=== PATIENT | male | born 1990 ===

== ENCOUNTER 2025-07-16 09:25 | Emergency (ER) | payer BC, SELFPAY ==
[2025-07-16 09:27] VITALS: BP 112/70; PULSE 86; RESP 16; TEMP 36.9; O2SAT 99; BMI 27.3
--- NOTE | 2025-07-16 09:34 | ED_ITS ---
HPI - Eye Problem General Chief complaint: Eye Problems Stated complaint: eye issues Time Seen by Provider: 07/16/25 09:31 Source: patient Mode of arrival: ambulatory Limitations: no limitations History of Present Illness ED Provider: Ambreen Salinas PA-C HPI Narrative: 35-year-old male presents to the ER for evaluation of right eye pain, redness, sensitivity for the last 2 weeks. He states 2 weeks ago he had a rip in his contact and had to continue wearing it because he had no others to replace it with. He has had sensitivity to light, redness, pain in the right eye. He has not worn his contacts for the last 2 weeks. No changes in his vision. In the morning he will wake up with some mild crusting on the right eye but no ongoing discharge throughout the day. He reports a friend had a steroid eyedrops which he was using for the last several days. He last had an eye exam 1.5 years ago and just got new eye insurance, trying to find a new eye doctor. MD chief complaint: eye pain and eye redness Onset description: sudden Duration: constant Location: right eye Eye Symptoms: burning, redness, pain, discharge and photophobia Place: home Mechanism: other (Broken contact lens) Severity: moderate If Pain, Quality: burning and aching Context: contact lens use Associated symptoms: none Treatments Prior to Arrival: OTC eye drops and NSAID Related Data Previous Rx's ?Medication ?Instructions ?Recorded erythromycin 5 mg/gram (0.5 %) eye 0.5 inch ophthalmic (eye) BID #3.5 07/16/25 ointment grams Allergies Allergy/AdvReac Type Severity Reaction Status Date / Time SEAFOOD Allergy Severe throat Uncoded 07/16/25 09:30 swelling Review of Systems Review of Systems: Yes all other systems are reviewed and are negative [facility] Social History Social History Advance Directives: No Advance Directives Information Provided: Yes Physical Exam Exam: Exam: Appearance: Alert. Oriented X3. No acute distress. HEENT: Face is symmetric. Normal inspection of the periorbital structures including the lids. Normal inspection of the left eye, no scleral or co njunctival injection. The right eye has diffuse scleral injection, there is an obvious corneal abrasion at 12:00. Pupils are equal round and reactive to light bilaterally. Extraocular movements are intact. No drainage from the eye. Anterior chamber appears normal. No visible foreign body CVS: Normal heart rate and rhythm. Pulses normal. Respiratory: No respiratory distress. Speaking in complete sentences Skin: Skin warm and dry. Normal skin color. No rashes. Extremities: normal inspection x4 Neuro: Awake, alert, nonfocal Vital Signs: Vital Signs: Last Vital Signs Temp 98.4 F 07/16/25 10:17 Pulse 86 07/16/25 10:17 Resp 16 07/16/25 10:17 BP 112/70 07/16/25 10:17 Pulse Ox 99 07/16/25 10:17 O2 Del Method Room Air 07/16/25 10:17 BMI result Body Mass Index 27.3 Medications Administered Discontinued Medications Generic Name Dose Route Start Last Admin Trade Name Freq PRN Reason Stop Dose Admin Fluorescein Sodium 1 strip 07/16/25 09:34 07/16/25 09:42 Fluorescein Sodium Strip EYE-RIGHT 07/16/25 09:35 1 strip ONCE ONE Administration Tetracaine HCl 1 drop 07/16/25 09:34 07/16/25 09:43 Tetracaine Hcl/Pf 0.5% Oph Helen 4 Ml Drops EYE-RIGHT 07/16/25 09:35 1 drop ONCE ONE Administration Medical Decision Making Medical Decision Making MDM Narrative: 35-year-old male presents to the ER for evaluation of right eye pain, redness, photosensitivity for the last 2 weeks after he was wearing a damaged contact. Exam is consistent with a corneal abrasion. He does not sleep in his contacts. No evidence of corneal ulcer on exam. Unfortunately he has been using topical steroids which can hinder corneal abrasion healing and predispose infection. We discussed the need to stop using this and will prescribe erythromycin ointment. Referral for Dr. Bonilla encouraged, he expressed understanding and all questions were answered. Stable for discharge home Differential Diagnosis Differential Diagnoses: The differential diagnosis associated with the presentation includes Corneal abrasion, corneal ulcer, conjunctivitis, foreign body, keratitis, iritis Independent Historian Clinical information obtained from an independent historian. History obtained from or confirmed by: Spouse Prescription Management I considered prescription management with: Pain Medication and Antibiotic Critical Care Time Critical Care Time Critical Care Time: No Discharge Plan Discharge Clinical Impression: Corneal abrasion Patient Disposition: Home, Self-Care Instructions: Corneal Abrasion (DC) Additional Instructions: you have a large scratch on your eye use the prescribed antibiotic ointment to help it heal STOP the steroid eye drops, this can delay corneal abrasion healing and increase risk of infection follow up with an eye doctor for re-evaluation to make sure it is healing - try Dr. Bonilla or [facility] Department [phone] no contacts until resolved use warm compresses to the right eye 2-3 times per day take motrin and tylenol as needed for pain If you develop new or worsening symptoms call 911 or come back to the ER for further evaluation. Prescriptions: New erythromycin 5 mg/gram (0.5 %) ointment 0.5 inch ophthalmic (eye) BID Qty: 3.5 0RF Referrals: Tien Bonilla [Physician, Ophthalmology] Referral Note: 2 weeks right eye pain, abrasion on exam Clinical Impression: Corneal abrasion Interventions: ED Discharge Assessment Last Done: 07/16/25 10:17 Discharge Date/Time: 07/16/25 10:18 Print Language: Kyrgyz
[2025-07-16] MEDS: Fluorescein Sodium STRIP 1 STRIP EYE-RIGHT (09:42)
[2025-07-16] MEDS: Tetracaine HCl/PF 0.5% Oph Sol 4 ML DROPS 1 DROP EYE-RIGHT (09:43)
[2025-07-16 10:17] VITALS: BP 112/70; PULSE 86; RESP 16; TEMP 36.9; O2SAT 99
--- OUTSIDE RECORDS SUMMARY | 2025-07-16 10:28 | XMS_ITS | Clinical Summary ---
Author Organization [facility] Address [address] [place] [address] Care Team Providers Care Manager Body Name Role Phone No, Pcp Primary Care Provider Unavailabl e Allergies No known active allergies Medications No known medications Family History Medical History Relation Comments Cirrhosis Father Diabetes Father Relation Status Comments Father Mother Alive Social History Tobacco Use Types Packs/Day Years Used Date Smoking Tobacco: Never Smokeless Tobacco: Never Alcohol Use Standard Drinks/Week Comments Yes 0 (1 standard drink = 0.6 oz pur e alcohol) PHQ-2 Answer Date Recorded Depression Risk (PHQ2) Score 0 Sex and Gender Information Value Date Recorded Sex Assigned at Not on file Legal Sex Male 11:36 AM [facility] Gender Identity Not on file Sexual Orientation Not on file Last Filed Vital Signs Vital Sign Reading Time Taken Comments Blood Pressure 118/65 06/02/2021 9:07 AM EDT Pulse 92 06/02/2021 9:07 AM EDT Temperature 36.8 C (98.2 F) 06/02/2021 9:07 AM EDT Respiratory Rate - - Oxygen Saturation 97% 06/02/2021 9:07 AM EDT Inhaled Oxygen Concentration - - Weight 70.3 kg (155 lb) 06/02/2021 9:07 AM EDT Height 165.2 cm (5' 5.04 ) 06/02/2021 9:07 AM ED T Body Mass Index 25.76 06/02/2021 9:07 AM EDT Plan of Treatment Health Maintenance Due Date Last Done Comments Hepatitis C Screening 1990 PHQ-9 Depression Screen 2002 Annual Preventive Exam 2008 Complete Annual HRA 2008 RUSTAM-7 Anxiety Screen 2008 DTaP,Tdap,and Td Vaccines (1 - Tdap) 2009 COVID-19 Vaccine ( - 2023- season) 2025 Influenza Vaccine (#1) 2025 RSV Vaccine (SCDM) (1 - 1-dose 75+ series) 2065 Insurance [facility] Care Teams Manager Body Relationship Specialty Start Date End Date No, Pcp PCP - General 06/02/21
== END 2025-07-16 10:18 | disposition home or self-care (01) ==
PROVIDERS: Emergency Provider Emergency Medicine
DX: S05.01XA Injury of conjunctiva and corneal abrasion without foreign body, right eye, initial encounter (principal); X58.XXXA Exposure to other specified factors, initial encounter; Y93.89 Activity, other specified; Y92.89 Other specified places as the place of occurrence of the external cause; Y99.8 Other external cause status
CPT/HCPCS: 99283